=== PATIENT | female | born 1980 | race Caucasian/White ===

== ENCOUNTER 2016-10-30 19:15 | Emergency (ER) | payer OTHER ==
[2016-10-30 19:40] VITALS: BP 116/74
--- OUTSIDE RECORDS SUMMARY | 2016-10-30 21:22 | XMS REPORT | Continuity of Care Document ---
:1980 Author Organization [facility] ([facility]) Address [address] [place] [address] Phone [phone] Care Team Providers Name Role Phone Flaco Back Primary Care Provider [phone] Source Comments This disclosure is being made pursuant to the Care Everywhere program, applicable federal and state laws, and may not contain all informaitonavailable regarding this patient.[facility] ([facility]) Active Allergies and Adverse Reactions Allergen Noted Date Severity Reactions Comments Morphine 04/22/2015 Pruritus Penicillins 04/08/2014 Urticaria (Hives) Sulfa (Sulfonamide Antibiotics) 12/16/2014 Urticaria (Hives) Current Medications Prescription Sig. Disp. Refills Start Date End Date Status escitalopram oxalate Take 20 mg by Active 20 mg tablet mouth daily. ALPRAZolam 0.5 mg Take 0.5 mg by Active tablet mouth 3 times daily . gabapentin 300 mg Take 900 mg by Active capsule mouth 3 times daily. 300mg AM and Afternoon and 600mg @@ HS hydrOXYzine pamoate 50 Take 50 mg by Active mg capsule mouth every 8 hours as needed. lamoTRIgine 150 mg Take 150 mg by Active tablet mouth daily. nabumetone 750 mg Take 1 tablet (750 60 tablet 2 08/02/2016 Active tablet mg total) by mouth 2 times daily. Active Problems Problem Noted Date S/P lumbar fusion 08/02/2016 Depression 08/25/2015 Anxiety 08/25/2015 S/P lumbar spinal fusion 05/06/2015 Spondylolisthesis 02/08/2015 Hip pain 12/16/2014 Spondylolysis 11/18/2014 Acetabular labrum tear 05/11/2014 Most Recent Encounters Date Type Specialty Providers Description 08/31/2016 Telephone Orthopaedic Luis Alfredo Hennessy, Chief Comp: Other 08/31/2016 Telephone Orthopaedic Ryan Mc, Chief Comp: Letter for MD School/Work 08/17/2016 Telephone Orthopaedic Ryan Mc, Chief Comp: Request MD For Consult 08/15/2016 Telephone Ryan Allen, Chief Comp: Follow-up MD 08/02/2016 Hospital Encounter Radiology Tien Ly, Chief Comp: Patient MD Reported Reason For Visit 08/02/2016 Office Visit Ryan Allen, Dx: S/P lumbar fusion Social History Tobacco Use Types Packs/Day Years Used Date Never Smoker Smokeless Tobacco: Never Used Tobacco Cessation:Counseling Given: Yes Comments: Alcohol Use Drinks/Week oz/Week Comments Yes 1 per month Last Filed Vital Signs Vital Sign Reading Time Taken Blood Pressure 133/63 08/25/2015 10:52 AM [facility] Pulse 89 08/25/2015 10:52 AM [facility] Temperature 36.8 C (98.2 F) 08/25/2015 10:52 AM [facility] MAN Respiratory Rate 20 08/25/2015 10:52 AM [facility] Height 1.499 m (4' 11") 08/25/2015 10:52 AM [facility] Weight 80.287 kg (177 lb) 08/25/2015 10:52 AM [facility] Body Mass Index 35.73 08/25/2015 10:52 AM [facility] Oxygen Saturation 98% 08/25/2015 10:52 AM [facility] Plan of Care Health Maintenance Due Date Last Done Comments Hepatitis B Vaccine (1 of 3 - Primary Series) 1980 Tdap Vaccine 1992 Lipid Disorder Screening 1999 MMR Vaccine 1999 Td Vaccine 1999 Varicella Vaccine (1 of 2 - Adult - No Evidence of 1999 Immunity) Cervical Cancer Screening 2011 Influenza Vaccine: Seasonal (#1) 04/03/2016 Results from Last 3 Months L SPINE AP& LATERAL (08/02/2016 12:24 PM) Impressions Findings/impression: Posterior spinal fusion extending from L4 through S1 appears intact and in grossly stable position. Remainder of exam is stable. Narrative Procedures: L SPINE AP & LATERAL Indication: Evaluate hardware. Technique: AP and lateral views of the lumbar spine Comparison: Radiographs dated 10/20/2015. Procedure Note Luc, Incoming Imaging Results - SunAug 02, 2016 2:48 PM [facility] Procedures: L SPINE AP & LATERAL Indication: Evaluate hardware. Technique: AP and lateral views of the lumbar spine Comparison: Radiographs dated 10/20/2015. IMPRESSION Findings/impression: Posterior spinal fusion extending from L4 through S1 appears intact and in grossly stable position. Remainder of exam is stable.
--- NOTE | 2016-10-30 21:43 | ERNOTE ---
Lower Extremity HPI - General Lower Extremities Pain: knee: left - tripped and hit her knee this morning Time Seen by Provider: 10/30/16 20:55 Source: patient Exam Limitations: no limitations - Immun/Allergies/Home Medications Immunizations: IMMUNIZATION HX Immunizations Up to Date Yes History of Influenza Vaccine No Hx Pneumococcal Vaccination No Allergies/Adverse Reactions: Allergies Allergy/AdvReac Type Severity Reaction Status Date / Time morphine Allergy Intermediate Hives Verified 06/17/16 21:07 Penicillins Allergy Intermediate Hives Verified 06/02/16 16:28 Sulfa (Sulfonamide Allergy Intermediate Hives Verified 06/17/16 21:07 Antibiotics) metronidazole Allergy Mild Itching Verified 06/17/16 21:08 tramadol AdvReac Mild Nausea Verified 06/17/16 21:07 Home Medications: HOME MEDICATIONS ALPRAZolam [Xanax] 1 mg PO TID 08/23/15 [Last Taken Unknown] Escitalopram Oxalate 30 mg PO DAILY 12/16/15 [Last Taken Unknown] Gabapentin 900 mg PO TID 12/16/15 [Last Taken Unknown] Hydroxyzine HCl 50 mg PO QID PRN 12/16/15 [Last Taken Unknown] Lamotrigine 200 mg PO HS 06/02/16 [Last Taken Unknown] - History of Present Illness Narrative: Pt fell and struck her knee on the stair this morning. She went to work and walked all day. Others were concerned with it so she came to the ED Occurred: this morning Location of Incident: home Method of Injury: Reports: fell, direct blow Reason for Fall: Reports: tripped Loss of Consciousness: Reports: no loss of consciousness Review of Systems - Review of Systems Constitutional: Present: no symptoms reported EYE: Present: no symptoms reported ENT: Present: no symptoms reported Respiratory: Present: no symptoms reported Cardiology: Present: no symptoms reported Gastrointestinal/Abdominal: Present: no symptoms reported Musculoskeletal: Present: See HPI, joint pain, joint swelling Skin: Present: See HPI, other - laceration left knee Neurological: Absent: weakness, numbness, tingling Endocrine: Present: no symptoms reported Hematologic/Lymphatic: Present: no symptoms reported Psych: Present: no symptoms reported - Patient's Past Medical History Patient History - Medical: Anxiety, Bipolar, Chronic Pain, Depression, Headache , Hypothyroidism Patient History - Cardiac/Respiratory: No pertinent hx Patient History - Cancer: No Hx of Cancer Patient History - Surgical Procedures: D & C, Hysterectomy, Other Patient History - Other: None - Family History Mother Family History - Medical: No pertinent hx Father Family History - Medical: No pertinent hx - Social History Living Situations: home Abuse History: No History of abuse Psych History: No pertinent hx Smoking Status: Never smoker Have you smoked in the past 12 months: No Do you dip or chew tobacco: No Alcohol Use: occasionally Drug Use: none - Immunizations Immunizations Up to Date: Yes Hx Pneumococcal Vaccination: No History of Influenza Vaccine: No Physical Exam - Physical Exam General Appearance: Present: wd/wn, alert, no apparent distress Neck: Present: normal inspection Respiratory: Present: no respiratory distress, no accessory muscle use Extremity Exam: Present: decreased range of motion - left knee minimally. Minimal superficial swelling. Ligaments intact, no effusion Neurological Exam: Present: alert, oriented, normal mood/affect Skin Exam: Present: other - abrasion on left knee, approx 1 cm in diameter with deep abrasion/ superficial laceration 1 cm in length. wound well approximated ED Progress - Vital Signs Vital Signs: Vital Signs 10/30/16 19:30 Temperature 36.1 C L Pulse Rate 80 Respiratory 16 Rate Blood Pressure 116/74 O2 Sat by Pulse 99 Oximetry - Progress/Reassessment Chief Complaint: Lower Extremity Pain/ Injury Progress:: Improved Departure Clinical Impression: Abrasion Left knee sprain Qualifiers: Encounter type: initial encounter Involved ligament of knee: unspecified ligament Qualified Code(s): S83.92XA - Sprain of unspecified site of left knee, initial encounter - Departure Disposition: Home self-care Condition: Good Instructions: Knee Sprain, [id number], Contusion, [id number], Cryotherapy Referrals: Flaco Back MD [Primary Care Provider] -
== END 2016-10-30 22:28 | disposition home or self-care (01) ==
LOC: ER 19:15
DX: S80.212A Abrasion, left knee, initial encounter (principal); X58.XXXA Exposure to other specified factors, initial encounter; Y92.008 Other place in unspecified non-institutional (private) residence as the place of occurrence of the external cause; S83.92XA Sprain of unspecified site of left knee, initial encounter; F31.9 Bipolar disorder, unspecified

== ENCOUNTER 2017-07-10 13:55 | Emergency (ER) | payer SELFPAY ==
[2017-07-10 14:05] VITALS: BP 130/82
--- NOTE | 2017-07-10 15:06 | ERNOTE ---
Medical Problem HPI - General Chief Complaint: General Assessment Time Seen by Provider: 07/10/17 14:54 Source: patient Exam Limitations: no limitations - Immun/Allergies/Home Medications Immunizations: IMMUNIZATION HX Immunizations Up to Date Yes History of Influenza Vaccine No Hx Pneumococcal Vaccination No Allergies/Adverse Reactions: Allergies morphine Allergy (Intermediate, Verified 07/10/17 14:06) Hives Penicillins Allergy (Intermediate, Verified 07/10/17 14:06) Hives Sulfa (Sulfonamide Antibiotics) Allergy (Intermediate, Verified 07/10/17 14:06) Hives metronidazole Allergy (Mild, Verified 07/10/17 14:06) Itching tramadol Adverse Reaction (Mild, Verified 07/10/17 14:06) Nausea Home Medications: HOME MEDICATIONS ALPRAZolam [Xanax] 1 mg PO TID 08/23/15 [Last Taken Unknown] Escitalopram Oxalate 30 mg PO DAILY 12/16/15 [Last Taken Unknown] Gabapentin 900 mg PO TID 12/16/15 [Last Taken Unknown] Hydroxyzine HCl 50 mg PO QID PRN 12/16/15 [Last Taken Unknown] lamoTRIgine [Lamotrigine] 200 mg PO HS 06/02/16 [Last Taken Unknown] Ciprofloxacin/Hydrocortisone [Cipro Hc Otic Suspension] 3 drop LEFT EAR QID #10 ml 07/10/17 [Last Taken Unknown] Levothyroxine Sodium [Synthroid] 25 mcg PO DAILY 07/10/17 [Last Taken Unknown] Topiramate [Topamax] 25 mg PO BID 07/10/17 [Last Taken Unknown] - History of Present History Narrative: Patient complains of pain in her left ear canal after scraping with a Q-tip. 4 days ago she said she was at work, considerably stressed out and fainted. While she done this in the past she is not exactly certain why she did this time however she feels back to her baseline now. Timing: constant - ear pain Severity: moderate Review of Systems - Review of Systems Constitutional: Present: See HPI EYE: Present: no symptoms reported ENT: Present: See HPI, ear pain Respiratory: Present: no symptoms reported Cardiology: Present: no symptoms reported Gastrointestinal/Abdominal: Present: no symptoms reported Genitourinary: Present: no symptoms reported Musculoskeletal: Present: no symptoms reported Skin: Present: no symptoms reported Neurological: Present: no symptoms reported Endocrine: Present: no symptoms reported Hematologic/Lymphatic: Present: no symptoms reported Psych: Present: no symptoms reported - Patient's Past Medical History Patient History - Medical: Anxiety, Bipolar, Chronic Pain, Depression, Headache , Hypothyroidism Patient History - Cardiac/Respiratory: No pertinent hx Patient History - Cancer: No Hx of Cancer Patient History - Surgical Procedures: D & C, Hysterectomy, Other Patient History - Other: None - Family History Mother Family History - Medical: No pertinent hx Father Family History - Medical: No pertinent hx - Social History Living Situations: home Abuse History: No History of abuse Psych History: No pertinent hx - Immunizations Immunizations Up to Date: Yes Hx Pneumococcal Vaccination: No History of Influenza Vaccine: No Physical Exam - Physical Exam General Appearance: Present: wd/wn, alert, mild distress Head Exam: Present: normal inspection Eye Exam: Normal inspection: bilateral, PERRL: bilateral Ears, Nose, Throat: Present: normal pharynx, other - dried blood and abrasion present in the left EAM Neck: Present: normal inspection, nontender Respiratory: Present: no respiratory distress, normal breath sounds, no accessory muscle use, chest nontender, lungs clear Cardiovascular/Chest: Present: regular rate, rhythm, no murmur, normal peripheral pulses Gastrointestinal/Abdominal: Present: normal bowel sounds, nontender, nondistended, soft, no organomegaly Rectal Exam: Present: deferred Back Exam: Present: normal inspection, normal range of motion Extremity Exam: Present: normal inspection, non-tender, no edema, normal range of motion Neurological Exam: Present: alert, oriented, normal mood/affect Skin Exam: Present: normal color, warm/dry Lymphatic Exam: Present: no adenopathy ED Progress - Vital Signs Patient's Vital Signs:: I have reviewed the patient's vital signs. 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 We will give her some drops to put in the left ear and she will follow-up with her family physician as needed. Departure Clinical Impression: Open wound of external auditory meatus - Departure Disposition: Home self-care Condition: Good Instructions: Otitis Externa, [id number] Referrals: Flaco Back MD [Primary Care Provider] - Prescriptions: Ciprofloxacin/Hydrocortisone [Cipro Hc Otic Suspension] 3 drop LEFT EAR QID #10 ml
== END 2017-07-10 15:05 | disposition home or self-care (01) ==
LOC: ER 13:55
DX: S01.302A Unspecified open wound of left ear, initial encounter (principal); F31.9 Bipolar disorder, unspecified; G89.29 Other chronic pain; E03.9 Hypothyroidism, unspecified; F41.8 Other specified anxiety disorders